=== PATIENT | male | born 1955 | race Hispanic/Latino ===

== ENCOUNTER 2016-09-10 05:30 | Day surgery (SDC) | payer OTHER ==
[2016-09-10] VITALS (11 sets, daily range): BP systolic 135–153; BP diastolic 87–93; PULSE 61–80; RESP 7–16; O2SAT 93–97
[~2016-09-10] VITALS: Ht 172.7 cm; Wt 71.5 kg
[~2016-09-10 05:30] MED LIST: Bupivacaine Liposome 1.3% 20 mL Inj INFILTRATE ONE; CeFAZolin Inj 2 GM in IV Premix 1 EACH IV ONE; MULT1CAP33 PO; NOMED; Vancomycin 1 Gm/200 mL NS Premix IV ONE
[2016-09-10] MEDS ORDERED: Propofol 10,000 mCg/mL 20 mL Inj ONE (05:31)
[2016-09-10] MEDS ORDERED: MetoCLOpramide 5 mg/mL 2 mL Inj ONE (05:31)
[2016-09-10] MEDS ORDERED: Dexamethasone 4 mg/mL Inj ONE (05:31)
[2016-09-10] MEDS ORDERED: Ondansetron 2 mg/mL 2 mL Inj ONE (05:31)
[2016-09-10] MEDS: Lactated Ringer's 1,000 ML IV SCH ×2 (05:43→07:28)
[2016-09-10] MEDS ORDERED: FLUT9.9S NS (05:46)
[2016-09-10] MEDS ORDERED: AZEL137S11 NS (05:46)
[2016-09-10] MEDS ORDERED: CeFAZolin 2 Gm/50 mL D5W Duplex Bag IV ONE (05:49)
[2016-09-10] MEDS ORDERED: Bupivacaine Liposome 1.3% 20 mL Inj ONE (07:15)
--- NOTE | 2016-09-10 07:16 | PCM.HPANE ---
Patient Data Surgeon Admitting Provider: Attending Provider:Axel Mtz MD Primary Care Physician:Cyndee Burns MD Other Provider:Fanny Liebermaningham Anesthesia Reason for Visit Right Knee Arthritis Ht/WT & BMI Height (Feet): 5 Height (Inches): 8 Weight (Kilograms): 71.5 Body Mass Index 23.00 Allergies Coded Allergies: latex (Verified Allergy, Unknown, 03/21/15) Uncoded Allergies: POLLEN (Allergy, Unknown, 03/25/15) Past Anesthesia History Anesthesia History: Denies:: Abnormal Airway, Anesthesia Reactions, Difficult Intubation, Fam Anesthesia Reaction, Fam Malignant Hypertherm, Malignant Hyperthermia Diabetes History Hx Diabetes?: No MRSA MRSA: No Medications Home Meds Incl Beta Eduardo: No Reported Medications Azelastine HCl 137 Mcg/0.137 Ml [place].tctd260 Mcg NS DAILY 09/10/16 Fluticasone Propionate (Flonase Allergy Relief)50 Mcg/Actuation [place].susp9.9 Ml NS DAILY 09/10/16 Multivitamin (Multivitamins)1 Each Capsule1 Each PO DAILY 03/25/15 Discontinued Reported Medications No Historical Medication Ea Ref 0 03/29/09 History History of ENT Problems?: No HEENT History: Denies:: Abnormal Airway Cataracts Difficult Intubation Dysphagia Glaucoma Hearing Problem Sinus Problem TMJ Denture Type: None Teeth Condition: Within Normal Limits Hx of Heart Problems?: No Cardiovascular History: Denies:: AICD Abdominal Aortic Aneurism Atrial Fibrillation Cardiac Surgery Chest Pain Congestive Heart Failure Coronary Artery Disease Edema Heart Murmur Hypertension Irregular Heartbeat Pacemaker Peripheral Vascular Rheumatic Fever Thrombophlebitis Valvular Heart Disease Hx of Respiratory Problem?: No Respiratory History: Denies:: Asthma COPD Chest Surgery Cough Dyspnea Emphysema Hemoptysis Oxygen Administration Pneumonia Pulmonary Embolism Tuberculosis Use of C-PAP Machine Use of Inhalers / NEBS Hx Neurologic Problems?: No Neurological History: Denies:: CVA Hx of GI Problems?: No Hx of Problems?: No Male Hx: Denies:: Prostate Problems Scrotal Mass Testicular Surgery Skin History: Denies:: History Skin Disorders? Pressure Ulcers Hx Musculoskeletal Problems?: Yes Musculoskeletal History: Positive for:: Degenerative Joint (Rt knee) Musculoskeletal Trauma (small toe) Osteoarthritis (Rt knee) Denies:: Back Injury Fibromyalgia Joint Replacement Myasthenia Gravis Rheumatoid Arthritis Systemic Lupus Hx Surgeries?: Yes (Ene) Hx Any Other Health Problems?: Yes Other History: Positive for:: Hospitalization (2009) Denies:: Cancer Endocrine Disease Thyroid Disease History Blood Transfusions: Positive for:: Accept Blood Products? Denies:: Blood Transfuse Reaction Blood Transfusions Hx Diabetes: No Hx Alcohol Use: NoHx Substance Use: No Smoking Status: Never Smoker Stop/Bang Treated for Sleep Apnea?: No Do You Have a CPAP Machine?: No S-Snoring: Do You Snore Loudly: Yes T-Tired: feel tired, fatigued: No O-Obsered: Observed not breath: No P-Blood Pressure: treated: No B- Body Mass Index > 35 kg/m2: No A- Age over 50: Yes N- Neck Large Circumference: No G- Gender Male: Yes EUFEMIA Total Score: 3 EUFEMIA Risk Assessment: Low Risk, <3 Yes Risk Assessment Category Category 1A: Patient has history of documented sleep apnea, and HAS NOT received any narcotic, sedative or anesthesia administration during this stay. Category 1B: Patient has history of documented sleep apnea, and HAS received any narcotic , sedative or anesthesia administration during this stay Category 2: Patient has SUSPECTED Obstructive Sleep Apnea, and HAS received any narcotic , sedative or anesthesia administration during this stay. Category 3: Patient has SUSPECTED Obstructive Sleep Apnea and HAS NOT received narcotic, sedative or anesthesia administration during this stay. Category 4: Outpatient in Procedural Areas with known sleep apnea or who screen positive for High Risk via the STOP/BANG questionnaire. Exam Exam Vital Signs Vital Signs Date Time Temp Pulse Resp B/P Pulse Ox O2 Delivery O2 Flow Rate FiO2 09/10/16 06:07 35.8 61 16 141/89 96 Room Air General Appearance: Oriented X3 HEENT/AIRWAY: MP 2 Lungs: Normal Air Movement Heart: Regular Rate/Rhythm Meds/Labs/Diagnostics Admission Meds Current Medications Vancomycin/0.9 % Sod Chloride 1000 mg/Premix 200 ml @ 133.333 mls/hr 01 ONCE IV Last administered on 09/10/16 06:00; Start 09/10/16 at 01:00; Stop at 02:29; Status DC Lactated Ringer's (Lr) 1,000 ml @ 120 mls/hr Q8H20M IV Last administered on 05:43; Start 09/10/16 at 05:00; Stop 09/10/16 at 13:19 Plan Impression Patient chart reviewed, patient interviewed and anesthestic plan with risks, benefits, and alternatives discussed, and informed consent obtained. ASA Physical Status: ASA2 Mod Systemic Disease Anesthetic Plan: GA Bene/Risks/Altern/Consents: Yes HP Complete Prior to Induction: Yes Jame Odonnell MD Sep 10, 2016 07:15
[2016-09-10] MEDS ORDERED: Tranexamic Acid 100 mg/mL 10 mL Inj ONE (07:19)
[2016-09-10] MEDS ORDERED: 0.9% Sodium Chloride 100 ML ONE (07:20)
[2016-09-10] MEDS ORDERED: Lactated Ringer's 1,000 ML IV SCH (07:52)
[2016-09-10] MEDS ORDERED: Lactated Ringer's 500 ML IV PRN (07:52)
[2016-09-10] MEDS ORDERED: fentaNYL-PF 50 mCg/mL 2 mL Inj IVPUSH PRN (07:55)
[2016-09-10] MEDS ORDERED: MetoCLOpramide 5 mg/mL 2 mL Inj IVPUSH PRN (07:55)
[2016-09-10] MEDS ORDERED: Dexamethasone 4 mg/mL Inj IVPUSH PRN (07:55)
[2016-09-10] MEDS ORDERED: HYDROmorphone 1 mg/mL Inj IVPUSH PRN (07:55)
[2016-09-10] MEDS ORDERED: Ondansetron 2 mg/mL 2 mL Inj IVPUSH PRN (07:55)
[2016-09-10] MEDS ORDERED: EPHEDrine Sulfate 50 mg/mL Inj IVPUSH PRN (07:55)
[2016-09-10] MEDS ORDERED: Phenylephrine 10,000 mCg/mL Inj IVPUSH PRN (07:55)
[2016-09-10] MEDS ORDERED: Gentamicin 40 mg/mL 2 mL Inj IRRIGATION ONE (07:57)
[2016-09-10] MEDS ORDERED: Bupivacaine-MPF 0.25%/EPI 30 mL Inj INFILTRATE ONE (07:57)
[2016-09-10] MEDS ORDERED: Lactated Ringer's 1,000 ML IV ONE (08:51)
--- NOTE | 2016-09-10 09:30 | OP ---
[address] [address] OPERATIVE REPORT PATIENT: STEPHANY VILLASEÑOR : 1955 MR#: [id number] ADMIT: 09/10/2016 JOB ID: [id number] DATE OF SURGERY: 09/10/2016 PREOPERATIVE DIAGNOSIS(ES): Severe medial compartment osteoarthritis. POSTOPERATIVE DIAGNOSIS(ES): Severe medial compartment osteoarthritis. PROCEDURE: Unicompartmental knee arthroplasty. SURGEON: Axel Mtz MD. SUSPECT ARTIST SUPERVISOR: Westley Gamez PA-C. Direct Mail Clerk required due to the complexity of the operation. INDICATIONS: This gentleman has had severe progressive osteoarthritis symptoms uncontrolled by conservative treatment options. He elects to proceed with a total knee replacement understanding and accepting the potential for risks and complications, which include, but not limited to, infection, thromboembolic and neurovascular events, as well as potential for progressive arthritis in unresurfaced compartments. Understanding this, he wishes to proceed. DESCRIPTION OF PROCEDURE: After appropriate time-out, sterile prep and drape. An anteromedial approach was made. Dissection was carried down. Frontal bossing and a patellar osteophyte removed. The tibial guide was assembled, and a tibial standard cut was made. The bone fragment was removed and sized. A spacer block was applied, and a distal femoral cut was made. A 7 mm depth was calipered. The femur was sized to the 5 chamfer cutting block, affixed in appropriate position and rotation. Drill holes and chamfer cuts were made. The tibia was sized to an E, provisionally affixed. Trial reduction was performed, and a 10 mm polyethylene was chosen which provided appropriate soft tissue tension and alignment. Pressurized lavage was followed by pressurized cementation. Cut margins had been injected with Marcaine and Exparel. The tourniquet was let down. Excess cement had been removed during the curing process. Hemostasis was achieved. Deep Hemovac drain was left. The patient was taken to the recovery room in stable condition. He tolerated the procedure well. There were no complications.
--- NOTE | 2016-09-10 10:01 | DRSVH ---
PROCEDURE: X-RAY RIGHT KNEE, ONE OR TWO VIEWS ([id number]) INDICATIONS: CHECK ALIGNMENT TECHNIQUE: 2 view(s) of the knee acquired. COMPARISON: 09/16/2015 FINDINGS: Bones: Patient is status post knee joint arthroplasty. Hardware components are in expected position s. Visualized bony structures are intact. Soft tissues: Overlying postoperative changes are noted. IMPRESSION: Acute postoperative changes of the medial hemiarthroplasty right knee. Dictated by: Eddie Em M.D. on 09/10/2016 at 9:59 Approved by: Eddie Em M.D. on 09/10/2016 at 9:59
[2016-09-10] MEDS ORDERED: oxyCODONE-Acetamin 5-325 mg Tablet PO ONE (10:05)
--- NOTE | 2016-09-10 10:11 | PCM.ANEP1 ---
Post Anesthesia PACU Phase 1 Assessment Vital Signs Vital Signs Date Time Temp Pulse Resp B/P Pulse Ox O2 Delivery O2 Flow Rate FiO2 09/10/16 10:01 36.4 74 14 150/93 93 Room Air 09/10/16 09:30 36.4 71 14 135/88 93 Room Air 09/10/16 09:25 73 7 147/88 93 Room Air 09/10/16 09:20 71 10 141/91 95 Room Air 09/10/16 09:15 72 10 142/90 95 Room Air 09/10/16 09:10 74 10 135/88 94 Room Air 09/10/16 09:05 77 12 153/87 96 Room Air 09/10/16 09:03 36.7 80 12 148/93 97 Room Air 09/10/16 06:07 35.8 61 16 141/89 96 Room Air Anesthetic Administered: GA Level of Alertness: Awake, talking Pain: No Nausea or Vomiting: No CV Function & Hydration Stable: Yes Airway Device: Lungs: Normal Air Movement PACU Phase 2 Assessment Patient Instructions Provided: N/A Jame Odonnell MD Sep 10, 2016 10:11
== END 2016-09-10 23:59 | disposition home or self-care (01) ==
LOC: SAS 05:30
PROVIDERS: ATTEND Orthopaedic Surgery
DX: M17.11 Unilateral primary osteoarthritis, right knee (principal)
CPT/HCPCS: 27446; 73560; C1713; C1776; J0690; J1100; J1170; J1580; J1885; J2405; J2765; J3370; J7120